=== PATIENT | female | born 1950 | race Caucasian/White ===

== ENCOUNTER 2019-09-17 12:53 | Outpatient (CLI) | payer MEDICARE, SELFPAY ==
--- NOTE | ~2019-09-17 | MMUS_ITS ---
EXAMINATION: MM diagnostic ezequiel RT w kenisha, US breast RT limited HISTORY: Six-month follow-up for probably benign right breast masses TECHNIQUE: Craniocaudal, mediolateral, and mediolateral oblique 3-D tomosynthesis images of the right breast were performed and synthetic 2-D images were generated. Spot compression views are also obtai kirstie. CAD analysis was submitted and interpreted. High resolution limited right breast ultrasound was performed. COMPARISON: 02/02/2019, 01/20/2019, 05/21/2012, 01/26/2009 BREAST PARENCHYMAL COMPOSITION: There are scattered areas of fibroglandular density. FINDINGS: MAMMOGRAPHIC FINDINGS: There are multiple right breast masses which have a stable appearance on several comparison mammogram s, consistent with benign findings. There is no evidence of suspicious mass, calcification, or nnamdi ectural distortion to suggest malignancy. There has been no suspicious interval change. ULTRASOUND: An intramammary lymph node is present at the 6:00 location 5 cm from the nipple. There is a questiona ble, stable hypoechoic area mild posterior shadowing at the 6:00 location 2 cm from the nipple with n o definite internal vascularity. There is a 6 mm x 4 mm irregular, hypoechoic, parallel mass with ang ular margins and posterior acoustic shadowing at the 9:00 location 6 cm from the nipple. IMPRESSION: 1. Suspicious sonographically detected masses in the right breast at the 6:00 location 2 cm from the nipple in the 9:00 location 6 cm from the nipple. 2. Ultrasound-guided biopsy is recommended. BI-RADS category 4, suspicious findings. Reviewed, dictated and finalized at location A. ER RUNNER IMPRESSION: 1. Suspicious sonographically detected masses in the right breast at the 6:00 l ocation 2 cm from the nipple in the 9:00 location 6 cm from the nipple. 2. Ultrasound-guided biopsy is recommended. BI-RADS category 4, suspicious findings.
== END 2019-09-17 12:54 | disposition home or self-care (01) ==
LOC: ANHIMG 12:59
PROVIDERS: PCP Family Medicine; Visit Provider Family Medicine
DX: R92.8 Other abnormal and inconclusive findings on diagnostic imaging of breast (principal)
CPT/HCPCS: 76642; 77061; 77065; G0279

== ENCOUNTER 2021-08-09 12:19 | Outpatient (CLI) | payer MEDICARE, SELFPAY ==
--- NOTE | ~2021-08-09 | XR_ITS ---
EXAMINATION: XR chest 2V EXAM DATE: 08/09/2021 12:41 INDICATION: Chronic cough. TECHNIQUE: Frontal and lateral projections of the chest obtained and reviewed. Comparison is made to prior examination from 01/20/2019. FINDINGS: The lungs are clear. There are no pleural effusions. The cardiomediastinal silhouette is within normal limits. There is no pneumothorax suspected. The bones and soft tissues are unremarkab le. IMPRESSION: No acute cardiopulmonary findings. Reviewed, dictated and finalized at location A. CAL EQUIPMENT TECHNICIAN
== END 2021-08-09 12:20 | disposition home or self-care (01) ==
PROVIDERS: PCP Family Medicine; Visit Provider Family Medicine
DX: R05.3 Chronic cough (principal)
CPT/HCPCS: 71046

== ENCOUNTER 2022-04-23 15:00 | Emergency (ER) | payer MEDICARE, SELFPAY ==
[2022-04-23] VITALS (38 sets, daily range): BP systolic 84–220; BP diastolic 26–116; PULSE 67–96; RESP 14–33; TEMP 36.7–37.1; O2SAT 89–100
--- NOTE | ~2022-04-23 | XR_ITS ---
EXAMINATION: XR shoulder RT min 2V DATE: 04/23/2022 20:16 INDICATION: Third attempt at reduction of a right glenohumeral dislocation. TECHNIQUE: AP and transscapular Y views of the right shoulder were obtained. COMPARISON: None FINDINGS: Successful reduction to normal alignment of the previously dislocated right glenohumeral joint. No f racture identified although the anterior rim of the glenoid is not well profiled.Moderate acromioclav icular osteoarthritis. This most portion of the right lung is clear. IMPRESSION: Successful reduction to anatomic alignment of the previously dislocated right glenohumeral joint. Reviewed, dictated and finalized at location A. IMPRESSION: Successful reduction to anatomic alignment of the previously dislocated right g lenohumeral joint.
--- NOTE | ~2022-04-23 | XR_ITS ---
EXAMINATION: XR shoulder RT 1V DATE: 04/23/2022 18:54 INDICATION: Second attempt postreduction of a right glenohumeral dislocation TECHNIQUE: AP view of the right shoulder were obtained. COMPARISON: None FINDINGS: Persistent anterior right glenohumeral dislocation. No fractures identified. Moderate right acromioclavicular osteoarthritis. Visualized portions of the lungs are clear. IMPRESSION: Persistent anterior dislocation of the right glenohumeral joint. Reviewed, dictated and finalized at location A.
--- NOTE | ~2022-04-23 | XR_ITS ---
EXAMINATION: XR shoulder RT 1V DATE: 04/23/2022 17:58 INDICATION: Postreduction right shoulder dislocation TECHNIQUE: AP view of the right shoulder was obtained. COMPARISON: 04/23/22 at 3:36 PM FINDINGS: Persistent anterior glenohumeral dislocation. No fractures identified. Moderate right acromioclavicul ar osteoarthritis. Moderate-sized subacromial spur. Soft tissues are unremarkable. Visualized portion of the right lung are clear. IMPRESSION: Persistent anterior dislocation of the right glenohumeral joint. Reviewed, dictated and finalized at location A.
--- NOTE | ~2022-04-23 | XR_ITS ---
EXAMINATION: XR shoulder RT min 2V INDICATION: Right shoulder pain TECHNIQUE: Three views of the right shoulder are submitted. COMPARISON: None FINDINGS: There is anterior and inferior dislocation of the humeral head with respect to the glenoid. There is moderate osteoarthritis of the acromioclavicular joint. No definite fracture is identified. Soft tissues are unremarkable. IMPRESSION: 1. Anterior and inferior dislocation of the humeral head with respect to the glenoid. Reviewed, dictated and finalized at location A. IMPRESSION: 1. Anterior and inferior dislocation of the humeral head with respect to the gl enoid.
--- NOTE | 2022-04-23 16:10 | ED.UPPEXIN ---
HPI - Extremity Injury (Upper) General Chief Complaint: Extremity Injury, Upper <Zenon Osuna APRN - Last Filed: 04/23/22 19:05> Stated Complaint: right elbow pain/ fall <Zenon Osuna APRN - Last Filed: 04/23/22 19:05> Time Seen by Provider: 04/23/22 15:46 <Zenon Osuna APRN - Last Filed: 04/23/22 19:05> History of Present Illness HPI narrative: 71-year-old female presents to the emergency room for evaluation of right shoulder pain. Patient states she experienced a ground-level fall, landing on her right shoulder. Presents with an obvious bony abnormality to the right shoulder. Patient states she also struck her head has a secondary injury, denies any loss of consciousness or altered mental status. <Zenon Osuna APRN - Last Filed: 04/23/22 19:05> Related Data Allergies/Adverse Reactions: Allergies Allergy/AdvReac Type Severity Reaction Status Date / Time Sulfa (Sulfonamide Allergy Mild Hives Verified 04/23/22 15:04 Antibiotics) <Zenon Osuna APRN - Last Filed: 04/23/22 19:05> Review of Systems Review of Systems: CONSTITUTIONAL: Denies fever, chills, or sweats. EYES: Denies visual changes, redness, or discharge. ENT: Denies rhinorrhea, congestion, sore throat, or otalgia. CARDIOVASCULAR: Denies chest pain, palpitations, or edema. RESPIRATORY: Denies cough or dyspnea. GASTROINTESTINAL: Denies abdominal pain, nausea, vomiting, or diarrhea. GENITOURINARY: Denies dysuria or hematuria. SKIN: Denies rash or itching. MUSCULOSKELETAL: Reports right shoulder pain NEUROLOGIC: Denies headache, numbness, dizziness, or weakness. PSYCHIATRIC: Denies anxiety or depression. <Zenon Osuna APRN - Last Filed: 04/23/22 19:05> [facility] Past Medical History Medical History: Medical History (Updated 04/24/22 @ 00:00 by Background Daemon) Anterior shoulder dislocation HTN (hypertension) Morbid obesity PREM (obstructive sleep apnea) <Zenon Osuna APRN - Last Filed: 04/23/22 19:05> Exam Narrative: GENERAL: Well-appearing, well-nourished, no physical limitations, and in no acute distress. HEAD: Normocephalic, atraumatic. EYES: Conjunctivae normal, PERRLA and EOMI. CHEST: Clear to auscultation. No respiratory distress. No wheezes rales or rhonchi. No tenderness. HEART: Regular rate and rhythm. No murmur heard. Normal peripheral pulses. EXTREMITIES: Right shoulder: Unable to test for range of motion due to pain and obvious dislocation. Neurovascular is intact distally. SKIN: Warm, dry, no rash. No noted wounds NEURO: No focal deficits. Alert and oriented x3. MAEW. CN's II-XI intact bilaterally, normal gait PSYCH: Cooperative. Normal mood and affect. <Zenon Osuna APRN - Last Filed: 04/23/22 19:05> Course Course Emergency Course: 1700: Shoulder xray shows an anterior/inferior humeral dislocation. Patient was placed on a lunchroom monitor and end-tidal CO2 monitoring. At 1720 150mg requiring supplemental oxygen of propofol was administered by MD Vasquez who was at the bedside. No otherwise several attempts were made to reduce the shoulder. 1750: Postreduction films were obtained, showing a persistent humeral dislocation. 1810: MD Alvares was consulted, he recommends further sedation. 1828: 20mg of etomidate was administered by MD Bernard. Several more attempts were made to reduce the humeral dislocation, and were unsuccessful. 1855: Another postreduction film was obtained showing persistent humeral dislocation. 1900: MD Alvares was paged a second time. <Zenon Osuna, BASEBALL SEWER HAND - Last Filed: 04/23/22 19:05> 1700: Shoulder xray shows an anterior/inferior humeral dislocation. Patient was placed on a lunchroom monitor and end-tidal CO2 monitoring. At 1720 150mg requiring supplemental oxygen of propofol was administered by MD Vasquez who was at the bedside. No otherwise several attempts were made to reduce the shoulder. 1750: Postreduction films were obtained, showing a pers
[2022-04-23] MEDS: SODIUM CHLORIDE 0.9% IV 1,000 ML 999 ML IV CONT (16:45)
[2022-04-23] MEDS: HYDROmorphone HCL INJ (*CRX) 1 MG/ML SYR 0.5 MG IV PUSH ×2 (16:45→19:37)
[2022-04-23] MEDS: PROPOFOL IV EMULSION 200 MG/20 ML VIAL (17:20)
[2022-04-23] MEDS: ETOMIDATE 20 MG/10 ML AMPUL (18:31)
[2022-04-23] MEDS: SODIUM CHLORIDE 0.9% IV 1,000 ML 150 ML IV CONT (19:38)
--- NOTE | 2022-04-23 19:45 | PM.CNOR ---
Assessment and Plan Assessment and plan (1) Anterior shoulder dislocation: Code(s): S43.016A - Anterior dislocation of unspecified humerus, initial encounter Status: Acute Plan RT shoulder dislocation after fall 5 hours earlier. Not able to be reduced with sedation by ER. Plan attempt at reduction with aid from anesthesiology. Discussed with patient- questions answered. Explained risks, benefit and alternatives. Wants to proceed Discussed nonoperative and operative treatment options with the patient. Risks and benefits of each as well as alternatives were reviewed. All of the patient's questions were answered. The risks of sedation and reduction reviewed including but not limited to: Neurovascular damage, infection, blood clot, pulmonary embolus, stroke, myocardial infarction, and anesthetic risks up to and including . Continued pain and possible dysfunction were explained. Specific risks of the procedure including neurovascular injury explained. No guarantees were offered. Patient verbalizes understanding and wishes to proceed. PLAN:rt shoulder closed reduction History of Present Illness HPI Consult date: 04/23/22 Requesting physician: Bertha Bernard III, Consult reason: other (RT shoulder dislocation) Chief complaint: right elbow pain/ fall Narrative: 71 yo woman at home, alone. Tripped and fell forward. RT shoulder dislocation, unreducible. No numbness or tingling. No prior problems. Review of Systems Constitutional: Constitutional: Denies fever(s) Eyes: Eyes: Denies blurry vision ENT: Reports Normal hearing present Cardiovascular: Cardiovascular: Denies chest pain and Denies dyspnea Respiratory: Respiratory: Denies dyspnea and Denies wheezing Gastrointestinal: Gastrointestinal: Denies abdominal pain Genitourinary: Genitourinary: Denies urinary urgency Musculoskeletal: Musculoskeletal: Reports as per HPI and Denies numbness Integumentary/Breasts: Skin/Breast: Denies changing lesions and Denies sores Neurologic: Reports Normal hearing present, Denies behavioral changes, Denies confusion, Denies numbness and Denies convulsions Psychiatric: Psychiatric: Denies behavioral changes, Denies confusion and Denies hallucinations Endocrine: Endocrine: Denies heat intolerance Hematologic/Lymphatic: Hematologic/Lymphatic: Denies easy bleeding Allergic/Immunologic: Allergic/Immunologic: Denies wheezing PMFSH Past Medical History Medical History (Updated 04/23/22 @ 19:48 by Feliciano Alvares MD) Anterior shoulder dislocation Meds Home Medications and Allergies Allergies Allergy/AdvReac Type Severity Reaction Status Date / Time Sulfa (Sulfonamide Allergy Mild Hives Verified 04/23/22 15:04 Antibiotics) Vital Signs Vital Signs - 24 hr 04/23/22 15:02 04/23/22 17:20 04/23/22 17:19 Temperature 98.7 F 98.1 F 98.1 F Pulse Rate 96 Pulse Rate [Left Monitor] 78 79 Respiratory Rate 16 20 19 Blood Pressure 147/90 H Blood Pressure [Left Arm] 139/89 139/89 Pulse Oximetry 98 100 99 Oxygen Delivery Nasal Cannula Nasal Cannula Oxygen Flow Rate 2 2 04/23/22 17:25 04/23/22 17:30 04/23/22 17:46 Temperature 98.1 F 98.1 F 98.1 F Pulse Rate Pulse Rate [Left Monitor] 79 79 79 Respiratory Rate 18 19 16 Blood Pressure Blood Pressure [Left Arm] 152/76 H 89/65 L 122/52 L Pulse Oximetry 96 99 100 Oxygen Delivery Nasal Cannula Nasal Cannula Nasal Cannula Oxygen Flow Rate 2 2 2 04/23/22 17:56 04/23/22 18:20 04/23/22 17:40 Temperature 98.1 F 98.1 F 98.1 F Pulse Rate Pulse Rate [Left Monitor] 82 81 77 Respiratory Rate 20 20 19 Blood Pressure Blood Pressure [Left Arm] 128/89 145/80 H 126/75 Pulse Oximetry 100 99 98 Oxygen Delivery Nasal Cannula Nasal Cannula Nasal Cannula Oxygen Flow Rate 2 2 2 04/23/22 17:51 04/23/22 18:12 04/23/22 18:16 Temperature 98.1 F 98.1 F 98.1 F Pulse Rate Pulse Rate [Left Monitor] 78 78 Respiratory Rate 18 17 16 Blood Press
--- NOTE | 2022-04-23 19:46 | PC.NURSE ---
17:20 50mg of Propofol given by the ED provider 17:25 second dose of 50mg Propofol given by the ed doctor X-ray was obtained and showed right shoulder still dislocated, Pt was put to second Moderate Sedation at 17:46 50mg of Propofol administered by ED MD and at 17:51 20mg of propofol given by the doctor. Right shoulder still dislocated at this time. At 1831 20mg of Amidate administered by the ED provider. Right shoulder still dislocated, pt tolerated procedure without any difficulty.
--- NOTE | 2022-04-23 19:47 | P.PNAN_ITS ---
Anes - Eval Pre Procedure Procedure: right shoulder reduction Date/Time: 04/23/22 19:47 Surgeon: herson Preop Diagnosis: right shoulder dislocation Pre Op Diagnosis: right elbow pain/ fall Patient Data Age: 71 Gender: F Height: 1.68 m Weight: 125 kg Last Vital Signs Temp 36.7 C 04/23/22 19:01 Pulse 78 04/23/22 19:01 Resp 18 04/23/22 19:01 BP 166/73 H 04/23/22 19:01 Pulse Ox 100 04/23/22 19:01 O2 Del Method Nasal Cannula 04/23/22 19:01 O2 Flow Rate 2 04/23/22 19:01 Allergies Allergy/AdvReac Type Severity Reaction Status Date / Time Sulfa (Sulfonamide Allergy Mild Hives Verified 04/23/22 15:04 Antibiotics) Patient hx anesthesia problems: none Family hx anesthesia problems: none Results Review: All pre-operative results and documents have been reviewed as part of the pre- operative evaluation. [facility] Past Medical History Medical History (Updated 04/23/22 @ 19:55 by Morelia Forbes, TECHNICAL SOLUTION ARCHITECT) Anterior shoulder dislocation HTN (hypertension) Morbid obesity PREM (obstructive sleep apnea) Exam Day of Procedure 04/23/22 19:47
--- NOTE | 2022-04-23 19:51 | W.PM.PROC2 ---
Procedure Note - Detailed Date of Procedure 04/23/22 Pre-op Diagnosis right shoulder dislocation Post-op Diagnosis Same Procedure Performed RT shoulder reduction Surgeon Feliciano Alvares MD Anesthesia MAC Indications 71yo woman with closed rt shoulder dislocation Description of Procedure Plan for procedure described in detail to the patient including risks, benefits and alternatives. Patient questions were answered. Informed consent given. Proper patient and extremity identified. Patient positioned supine. Anesthesiology on hand to assist with sedation. After sedation a traction countertraction method was employed and visible and palpable reduction of the shoulder noted. Post reduction radiographs showed good alignment of the glenohumeral joint and no fracture. Exam showed palpable radial pulse and good capillary refill in all the fingers and thumb. Once patient awoken from anesthesia she denied any numbness or tingling and was able to move all fingers and thumb. Sling applied. Estimated Blood Loss 0 Drains No Packing No Pathology None sent Complications None Condition Stable Disposition Other (in ER. Home with sling in place. Pendulum exercises. No abduction or forward flexion of the shoulder. May use elbow and hand. Sling when up and for sleep. May remove for hygiene and for clothing. Follow-up orthopedic office in 1 to 2 weeks. Pain medication as needed.)
[2022-04-23] MEDS: fentaNYL CITRATE INJ (*CRX) 100 MCG/2 ML VIAL (20:09)
[2022-04-23] MEDS: SODIUM CHLORIDE 0.9% IV 1,000 ML 1000 ML (20:10)
== END 2022-04-23 21:23 | disposition home or self-care (01) ==
PROVIDERS: Emergency Provider Nurse Practitioner Family; PCP Family Medicine
DX: S43.014A Anterior dislocation of right humerus, initial encounter (principal); I10 Essential (primary) hypertension; G47.33 Obstructive sleep apnea (adult) (pediatric); E66.01 Morbid (severe) obesity due to excess calories; Z68.41 Body mass index [BMI] 40.0-44.9, adult
CPT/HCPCS: 23650; 73020; 73030; 96374; 96375; 96376; 99285; A4565; J1170; J2704; J3010; J7030